=== PATIENT | female | born 1955 | race Caucasian/White ===

== ENCOUNTER 2018-04-18 10:15 | Outpatient (CLI) | payer OTHER ==
--- NOTE | 2018-04-18 17:06 | RAD ---
RIGHT WRIST THREE VIEWS: 04/18/18 No fracture or carpal abnormality was appreciated. The carpal relationships seem normal. The metacarp als appear intact. IMPRESSION: No acute findings. POS: HOME
== END 2018-04-18 10:16 | disposition home or self-care (01) ==
LOC: BURRAD 10:15
PROVIDERS: ATTEND Family Medicine
DX: M25.531 Pain in right wrist (principal)